=== PATIENT | female | born 1970 | race African-American/Black ===

== ENCOUNTER 2016-07-04 13:19 | Observation (INO) | payer MEDICAID, OTHER ==
--- NOTE | ~2016-07-04 | BMI ---
[facility] Nutrition Therapy DATE: 07/05/16 Patient: LEVIA SEPULVEDA Physician: ATTPRE Address: [address] [place] [address] Room/Bed: [address] [address], Zip: [place] [address] Admit Date: 07/04/16 Date of : [birth year] Height: 5 8 Weight: 294 133.4 HIGH BMI NOTE: DX: 44 yo female admitted for dizziness and hypotension ANTHROPOMETRICS: HT: 5'8", WT: 133 kg (293#), BMI: 44.6 DIET: Heart healthy INTERVENTION: 1. Heart healthy diet RECOMMENDATIONS: 1. Continue a heart healthy diet to promote gradual weight loss towards healthy BMI (19.0-25.0) RD will F/U per protocol. Respectfully, DESI BERNARD, Belt Molder Lavon Beaulieu MS, RD, LD [facility] and Nutritional [facility] cc: client file
--- NOTE | ~2016-07-04 | MU ---
Unit #: [id number] #: [id number] Patient: ELVIA SEPULVEDA [id number] [address] [address] [id number] I MR#: [id number] NAME: ELVIA SEPULVEDA : 1970 SEX: F STUDY DATE/TIME: 07/05/2016 UNIT: C5B ROOM: 548 STUDY DESCRIPTION: MUGA scan Attending Physician: Kelly Lopez M.D. Primary Care Physician: Saw Thomson M.D. CARDIOLOGY REPORT PROCEDURE PERFORMED MUGA scan. PROCEDURE Technetium 99m-labeled RBCs, 29.8 mCi, were injected. Images were obtained in left lateral, anteroposterior and left anterior oblique views. The left ventricular ejection fraction is calculated to be 57%. CONCLUSIONS The left ventricular ejection fraction is calculated to be 57% by MUGA scan. Dictated by... Jaylene Dejesus TD: 07/06/2016 08:01 JOB #: [id number] CARDIOLOGY REPORT X Kelly Lopez MD <ELECTRONICALLY SIGNED> 11/12/16 1429 CARDIOLOGY REPORT
--- NOTE | ~2016-07-04 | DS ---
Unit #: [id number] #: [id number] Patient: ELVIA SEPULVEDA [id number] [address] [place], [place] [address] [id number] I MR#: [id number] NAME: ELVIA SEPULVEDA ROOM: 548 Age: 46 Sex: F Admission Date: 07/04/2016 : 1970 Discharge Date: 07/05/2016 Attending Physician: Kelly Lopez M.D. Primary Care Physician: Saw Thomson M.D. DISCHARGE SUMMARY DISCHARGE DIAGNOSES 1. Dizziness, negative orthostatic vitals. 2. Mild to moderate pericardial effusion, no tamponade. 2D echo done 06/06/2016 shows moderate pericardial effusion. No evidence of cardiac tamponade. No worsening of pericardial effusion compared to echocardiogram done the previous month. 3. CT of the chest reveals small pericardial effusion. No evidence of pulmonary embolism. 4. History of pulmonary embolism in the past. 5. Hyperlipidemia. 6. Normal stress test recently. Details unavailable. 7. Hypertension. 8. Hypothyroidism. 9. Morbid obesity with a body mass index of 45. 10. Diabetes mellitus type 2. 11. Nonsmoker. 12. Occasional alcohol use. History of lap banding. 13. History of thyroidectomy. 14. History of blood clotting disorder. It is Factor V Leiden deficiency and history of pulmonary emboli. Is on daily subcu Lovenox, home medication. 15. Normal coronaries per cardiac cath in 2014. DISCHARGE MEDICATIONS 1. Lovenox 150 mg subcu b.i.d. 2. Gabapentin decreased down to 100 mg p.o. three times daily. 3. Bisacodyl 10 mg p.r.n. for constipation. 4. Colace 100 mg p.o. three times daily p.r.n. [id number] for constipation. 5. Furosemide 40 mg p.o. as needed for increased swelling and increased shortness of breath. 6. Tramadol 50 mg every 12 hours p.r.n. for pain. 7. K-Dur 40 mEq p.o. daily. 8. Change Synthroid to 250 mcg p.o. daily from 200 mcg daily. HOSPITAL COURSE This is a 46-year-old white female who is well known to Dr. Lopez. She was admitted directly from the office yesterday after the patient has been complaining of increased dizziness and fatigueness and near syncopal episode. She is also complaining of increased shortness of breath. Denies any chest pain, pain in her neck, bilateral jaws, shoulders, arms or elbow. Denied any palpitations. She was noticing some pedal edema. Denies any paroxysmal nocturnal dyspnea or orthopnea. Blood pressure in the office was low. It was documented to be 109/75. Dr. Lopez felt the Unit #: [id number] #: [id number] Patient: ELVIA SEPULVEDA patient maybe was having some hypertension from dehydration, possibly acute kidney injury. She wanted to stop her Lasix but she has a history of having a moderate pericardial effusion in the past and she repeated the echo in the office and continues to show pericardial effusion but no tamponade. She admitted the patient to undergo further studies. CT of the chest to evaluate pericardial effusion along with to make sure she didn't have a pulmonary embolism which the patient has had in the past. Was negative. It showed a small pericardial effusion. No evidence of pulmonary embolism. On labs, she did a TSH which it was 28.23 so she increased her dose of Synthroid. The patient, this morning, is feeling better. Also, Dr. Lopez advised to decrease down her dose of gabapentin. It may be making her fatigued and lethargic. Orthostatic vital signs were obtained and they were unremarkable. MUGA scan has been done and that revealed LVEF of 30% to 40%. Dr. Lopez feels like her pericardial effusion is most likely secondary to her hypothyroidism. She, as mentioned, will increase the dose of Synthroid and will get the levels checked in a few weeks. On date of discharge, patient's vital signs are stable. Her lungs are clear. On quality assurance monitor, she remains in normal sinus rhythm, no arrhythmias. Patient will be discharged home today and will be instructed to only take her Lasix as needed for increased swelling and shortness of breath and to decrease her Neurontin and change the dose of Synthroid. PHYSICAL EXAM AT TIME OF DISCHARGE VITAL SIGNS - blood pressure 132/72, heart rate 82, diminished breath sounds, respirations 18, afebrile. HEART - S1, S2. Regular rate and rhythm. No clicks, murmurs or rubs. LUNGS - diminished, otherwise clear. ABDOMEN - obese, soft, nontender. EXTREMITIES - pedal pulses are palpable. Decreased pedal edema. DIAGNOSTIC STUDIES LABORATORY: Glucose is 97, BUN 13, creatinine 1.2, eGFR above 60, sodium 138, potassium 4.2, chloride 109, CO2 25, calcium 8.8. TSH is 28.23. WBC 7.2, hemoglobin 12.2, hematocrit 37.9 and platelets 186. IMAGING: CT of the chest is small pericardial effusion. No evidence of pulmonary embolism. CARDIOVASCULAR: Telemetry shows normal sinus rhythm. PLAN/INSTRUCTIONS 1. Patient will be discharged today and instructed to follow up with Dr. Lopez in two to three months with a limited 2D echo to re-evaluate her LVEF with pericardial effusion. 2. Patient already has a followup appointment. 3. Cardiac rehab has been consulted to assist with patient getting increased exercise tolerance due to her multiple medical issues and obesity. 4. Patient has been instructed to only take her Lasix as needed for increased swelling and shortness of breath. Also, patient has been Unit #: [id number] #: [id number] Patient: ELVIA SEPULVEDA instructed to decrease her Neurontin to 100 mg p.o. three times daily. That may help on her fatigueness. 5. Her thyroid medication has been increased to Synthroid 250 mcg p.o. daily. The level will be checked as an outpatient and with her PCP in about six weeks. 6. On exam, there are no signs or symptoms of acute congestive heart failure or unstable angina. 7. Instructed patient to follow up with her PCP in two to three weeks. Dictated by... Megan LawrencePMikaelaRMikaelaNMikaela for Jaylene Dejesus/rowdy TD: 07/05/2016 12:22 JOB #: [id number] DISCHARGE SUMMARY X Erika Fitzpatrick APRN X DISCHARGE SUMMARY
--- NOTE | ~2016-07-04 | CT16 ---
[facility] A Service of [facility] RADIOLOGY TEXT RESULTS PATIENT: ELVIA SEPULVEDA LOCATION: [facility] : [birth year] UNIT #: [id number] AGE: [address]: Kelly Lopez MD SEX: F ORDER DR: [id number] [facility] [address]. [place], [place] [address] [id number] I MR#: [id number] Acc #: [id number] NAME: ELVIA SEPULVEDA : 1970 SEX: F STUDY DATE/TIME: 07/04/2016 19:27 UNIT: [facility] ROOM: [facility] STUDY DESCRIPTION: CT Angio Chest for PE Attending Physician: Kelly Lopez M.D. Ordering Physician: Kelly Lopez M.D. Primary Care Physician: Saw Thomson M.D. MEDICAL IMAGING REPORT This report is preliminary unless electronic signature is present EXAM CT chest PE protocol. HISTORY Shortness of air, pressure in chest times one and one-half weeks. History of liver, pancreatic disease. COMPARISON CT chest PE protocol 05/20/[address] exam was performed with one or more of the following radiation dose reduction techniques: automatic exposure control, adjustment of mA and/or kV according to patient size, and iterative reconstruction. FINDINGS Axial images of the chest following IV contrast. 3-D coronal and sagittal reconstructed images reviewed at a workstation. Pulmonary parenchyma is normal. No effusions. Normal enhancement of the pulmonary arteries. Aorta unremarkable. Small pericardial effusion. Upper abdomen remarkable for lap-band procedure. Osseous structures thoracic inlet appear normal. IMPRESSION 1. Small pericardial effusion. No evidence of pulmonary embolus. 2. Not mentioned above there is some fluid within the esophagus could be indicative of underlying reflux disease. Patient has undergone apparent lap-band procedure and possibly this may contribute to dysmotility which could also account for fluid within the esophagus. Dictated by... [facility] A Service of [facility] RADIOLOGY TEXT RESULTS PATIENT: ELVIA SEPULVEDA LOCATION: [facility] 54 : [birth year] UNIT #: [id number] AGE: [address]: Kelly Lopez MD SEX: F ORDER DR: Desiree Howe M.D. THIS IS AN ELECTRONICALLY VERIFIED REPORT Desiree Howe M.D. at 07/05/2016 6:33 PM Rina TD: 07/05/2016 09:30 JOB #: [id number] MEDICAL IMAGING REPORT COPY
[~2016-07-04 13:19] MED LIST: ARIXTRA10 MG/0.8 SUBQ; COUMADIN PO; COUMADIN1 MG PO; COUMADIN5 MG PO; FLEXERIL10 MG PO; HYDROCHLOROTHIA25 MG PO; INDERAL40 MG; IRON1 TAB PO; IRON325 ( 651 PO; KEFLEX PO; LEVOXYL200 MC1 PO; LISINOPRIL PO; LISINOPRIL5 MG PO; LOSARTAN POTASS50 MG PO; LOVENOX100 MG/ML SUBQ; MEDROL DOSEPAK4 MG DOB; METOPROLOL SUCC50 MG; METOPROLOL SUCC50 MG PO; MULTIPLE VITAMI1 T11 PO; NEURONTIN PO; PERCOCET 10/3251 TAB PO; PHENERGAN25 MG PO; PRAVACHOL; PRAVACHOL PO; ROBITUSSIN-DM118 M1 PO; SYNTHROID PO; SYNTHROID0.1 MG PO; TOBRADEX EYE DRO5 ML OP; TOPROL XL PO; TYLOX 5-500 CA1 EACH PO; VICODIN 5/1 TAB 5/50 PO; VICODIN PO; WARFARIN SODIUM10 MG PO; ZOFRAN PO
[2016-07-04 15:08] LABS: HEMATOCRIT 37.9 % (35.0-45.0); HEMOGLOBIN 12.2 gm/dL (12.0-16.0); MEAN CELL VOLUME 98.3 FL (83-96); MEAN CORPUSCULAR HEMOGLOBIN 31.6 PG (28-34); MEAN CORPUSCULAR HGB CONC 32.1 g/dL (30-36); MEAN PLATELET VOLUME 8.9 FL (6.5-11.5); RED BLOOD COUNT 3.85 X10e (3.90-5.30); RED CELL DISTRIBUTION WIDTH 15.7 % (11.0-15.5); WHITE BLOOD COUNT 7.2 X10e3 (4.0-10.5)
[2016-07-04] MEDS ORDERED: LOVENOX150 MG/ML SUBQ (15:19)
[2016-07-04] MEDS ORDERED: LASIX PO (15:19)
[2016-07-04] MEDS ORDERED: GABAPENTIN600 MG PO (15:20)
[2016-07-04] MEDS ORDERED: K-DUR20 ME1 PO (15:21)
[2016-07-04] MEDS ORDERED: LEVO-T200 MCG PO (15:22)
[2016-07-04] MEDS ORDERED: TRAMADOL HCL50 M2 PO (15:23)
[2016-07-04 15:30] LABS: BLOOD UREA NITROGEN 13 mg/dL (9-23); BUN/CREATININE RATIO 10.83; CALCIUM SERUM 8.8 mg/dL (8.4-10.2); CARBON DIOXIDE 25 mmol/L (22-31); CHLORIDE 109 mmol/L (100-111); CREATININE SERUM 1.2 mg/dL (0.6-1.4); GLOM FILT RATE Estimated ABOVE60 mL/min (>60); GLUCOSE FASTING 97 mg/dL (70-110); POTASSIUM 4.2 mmol/L (3.5-5.1); SODIUM 138 mmol/L (135-145)
[2016-07-05] MEDS ORDERED: FAST RELIEF LAX10 MG PR (15:02)
[2016-07-05] MEDS ORDERED: DOCUSATE SODIU100 MG PO (15:06)
== END 2016-07-05 16:26 | disposition home or self-care (01) ==
LOC: C5B 13:19
PROVIDERS: Internal Medicine Cardiovascular Disease
DX: R42 Dizziness and giddiness (principal); I31.3 Pericardial effusion (noninflammatory); Z79.01 Long term (current) use of anticoagulants; Z86.711 Personal history of pulmonary embolism; I10 Essential (primary) hypertension; E78.5 Hyperlipidemia, unspecified; E03.9 Hypothyroidism, unspecified; I42.9 Cardiomyopathy, unspecified; E66.01 Morbid (severe) obesity due to excess calories; Z68.42 Body mass index [BMI] 45.0-49.9, adult; E11.9 Type 2 diabetes mellitus without complications; Z79.84 Long term (current) use of oral hypoglycemic drugs; Z79.899 Other long term (current) drug therapy; Z98.84 Bariatric surgery status; Z86.2 Personal history of diseases of the blood and blood-forming organs and certain disorders involving the immune mechanism; Z88.8 Allergy status to other drugs, medicaments and biological substances; Z98.51 Tubal ligation status; Z82.49 Family history of ischemic heart disease and other diseases of the circulatory system; Z83.3 Family history of diabetes mellitus
CPT/HCPCS: 71275; 78472; 80048; 84443; 85027; 96372; 96375; 96376; A9560; G0378; J1650; Q9967

== ENCOUNTER 2016-07-26 10:40 | Emergency (ER) | payer MEDICAID ==
[~2016-07-26 10:40] MED LIST changes: +DOCUSATE SODIU100 MG PO; +FAST RELIEF LAX10 MG PR; +GABAPENTIN600 MG PO; +K-DUR20 ME1 PO; +LASIX PO; +LEVO-T200 MCG PO; +LOVENOX150 MG/ML SUBQ; +TRAMADOL HCL50 M2 PO
== END 2016-07-26 11:28 | disposition home or self-care (01) ==
LOC: CFTX 10:40
DX: H10.31 Unspecified acute conjunctivitis, right eye (principal); Z23 Encounter for immunization; E11.9 Type 2 diabetes mellitus without complications; I10 Essential (primary) hypertension; Z88.8 Allergy status to other drugs, medicaments and biological substances
CPT/HCPCS: 90471; 90715; 99283

== ENCOUNTER 2016-12-16 20:03 | Inpatient (IN) | payer MEDICAID ==
[~2016-12-16] VITALS: Ht 172.7 cm; Wt 124.3 kg
--- NOTE | ~2016-12-16 | HP ---
Unit #: [id number] #: [id number] Patient: ELVIA SEPULVEDA [id number] [address] [place], [place] [address] [id number] I MR#: [id number] NAME: ELVIA SEPULVEDA ROOM: 561 Age: 46 Sex: F Admission Date: 12/17/2016 : 1970 Attending Physician: Yamileth Cormier M.D. Primary Care Physician: Saw Thomson M.D. HISTORY AND PHYSICAL REASON FOR ADMISSION Dyspnea, moderate, probability pulmonary embolism seen on VQ scan. HISTORY OF PRESENT ILLNESS The patient is a very pleasant 46-year-old female with a prior history of numerous pulmonary emboli in the past since 2009, followed by Dr. Crum as an outpatient. Prior history of factor V Leiden deficiency. She presented secondary to shortness of breath, as well as difficulty with breathing. Apparently she was in her usual state of health several days ago when she began developing acute onset of difficulty with breathing and/or shortness of breath. She presented to the hospital for further evaluation. Initial evaluation, however, revealed her creatinine was mildly increased and GFR was decreased. Therefore, CTA was not performed but VQ scan was performed showing moderate probability of pulmonary embolus. The patient states that she has not been able to get her Lovenox injections at home for approximately 4 months secondary to lack of insurance and/or logistical issues. She routinely sees Dr. Crum and associates as an outpatient. She states that she has, otherwise, been in her usual state of health up until several months ago when she lost her insurance. Currently she tells me that her insurance now will pay for Lovenox. She is, otherwise, breathing on room air. She denies any chest pain at the present time. PAST MEDICAL HISTORY 1. Recent khkr-bt-wbtcqbna pericardial effusion, no tamponade/hospital admission May 2016. 2. Prior history of recurrent pulmonary embolism with numerous ultrasounds of lower extremities showing no acute DVTs in the past. 3. Hyperlipidemia. 4. Hypertension. 5. Morbid obesity. 6. Hypothyroidism. 7. Status post Lap-Band surgery. 8. Diabetes type 2. 9. Thyroidectomy history. 10. Factor V Leiden deficiency. 11. Cardiac catheterization in 2014 negative. 12. Type 2 diabetes. Unit #: [id number] #: [id number] Patient: ELVIA SEPULVEDA PAST SURGICAL HISTORY 1. . 2. Tubal ligation. 3. Thyroidectomy, as mentioned above. HOME MEDICATIONS 1. Tramadol 50 mg p.o. b.i.d. 2. Neurontin 100 mg p.o. q.8 p.r.n. 3. Lovenox 150 mg subcu b.i.d. FAMILY HISTORY Reviewed. Negative for blood clotting disorder. Otherwise, unremarkable. ALLERGIES No known drug allergies. SOCIAL HISTORY Resides at home by herself. Occasional alcohol use weekends. No tobacco. No recreational drug use. PHYSICAL EXAMINATION VITAL SIGNS: Temperature 98.1, pulse 75, respiratory rate 18, blood pressure 114/86. GENERAL APPEARANCE: The patient is a morbidly obese 46-year-old female lying comfortably. No acute distress. HEAD EXAM: Atraumatic, normocephalic. EAR EXAM: Tympanic membranes do not reveal any erythema or injection. NECK EXAM: Supple. CVS: S1, S2 without murmur. RESPIRATORY: Clear. GI/ABDOMEN: Nontender. Distention noted. LOWER EXTREMITIES: No evidence of any lower extremity edema. NEUROLOGIC: The patient is alert and oriented x3. No evidence of any focal nerve deficits. DIAGNOSTIC STUDIES LABS: Labs at time of admission include a hemoglobin of 11, aforementioned creatinine of 1.4, GFR approximately 56, BNP less than 5, lactic acid 2.1, troponin/cardiac enzymes first set negative. UA - Trace protein, leukocyte esterase 1+. INITIAL IMPRESSION 1. Dyspnea likely secondary to underlying pulmonary embolism as seen by moderate probability on VQ scan. Also likely secondary to multifactorial combination of severe morbid obesity, restrictive lung disease, as well. 2. History of hypertension. 3. Hyperlipidemia. 4. Morbid obesity. 5. Anemia. 6. Chronic neuropathy. 7. Prior history of type 2 diabetes. 8. Prior history of Lap-Band surgery. PLAN Admission telemetry floor. Consultation will be placed to Dr. Crum and associates, as they have seen the patient in the past, because she has not Unit #: [id number] #: [id number] Patient: ELVIA SEPULVEDA taken her Lovenox for approximately 4 months. Consideration will be given to resuming her Lovenox and planning for discharge to home. I have instructed the patient to follow up with Dr. Crum as an outpatient, as well as her primary care physician. I see records of hypothyroidism, type 2 diabetes, hypertension, hyperlipidemia; however, she is not taking any medications for the above. All this can effectively be worked up as an outpatient, as well. Plans have been reviewed with the patient. Will await input from hematology services. Once they see and evaluate the patient, the patient may be deemed appropriate for discharge home. Dictated by Jaylene Kendrick/wilner TD: 12/20/2016 07:44 JOB #: [id number] HISTORY AND PHYSICAL Page 1 of 1 X Yamileth Cormier MD HISTORY AND PHYSICAL
--- NOTE | ~2016-12-16 | EKG ---
PATIENT: ELVIA SEPULVEDA UNIT #: [id number] Ventricular Rate: 83 BPM Atrial Rate: 83 BPM P-R Interval: 132 ms QRS Duration: 82 ms Q-T Interval: 418 ms QTC Calculation(Bezet): 491 ms P Ballico: 43 degrees Calculated R Ballico: -11 degrees Calculated T Ballico: 55 degrees Diagnosis Line: Normal sinus rhythm Diagnosis Line: Low voltage QRS Diagnosis Line: Borderline ECG Diagnosis Line: When compared with ECG of 19-MAY-2016 19:51, Diagnosis Line: Questionable change in QRS axis Diagnosis Line: Confirmed by RHONDA MARIE MD ([id number]) on Diagnosis Line: 12/19/2016 4:42:16 PM INTERPRETING MD: HENNY
--- NOTE | ~2016-12-16 | US84 ---
[id number] [facility] [address] [place], [place] [address] [id number] I MR#: [id number] [facility] #: [id number] NAME: ELVIA SEPULVEDA : 1970 SEX: F STUDY DATE/TIME: 12/17/2016 20:54 UNIT: C5B ROOM: [facility] STUDY DESCRIPTION: US LE Veins Complete David Stdy Attending Physician: Yamileth Cormier M.D. Ordering Physician: Yamileth Cormier M.D. Primary Care Physician: Saw Thomson M.D. MEDICAL IMAGING REPORT This report is preliminary unless electronic signature is present EXAM Bilateral lower extremity venous Doppler REASON FOR EXAM Lower extremity swelling. FINDINGS The right common femoral vein, femoral vein, popliteal vein, anterior tibial vein and posterior tibial vein are widely patent and compressible. There is phasic flow with respiration and augmentation. The right peroneal vein does not have color flow and is noncompressible consistent with thrombosis. The proximal and distal greater saphenous vein is patent and compressible. The left common femoral vein, popliteal vein, tibial veins demonstrate patency and compressibility. There is phasic and spontaneous flow with respiration and augmentation. Proximal and distal greater saphenous vein is patent and compressible. Within the left popliteal fossa is a simple fluid collection 2.5 cm consistent with a cyst. IMPRESSION 1. Positive deep vein thrombosis of the right lower extremity in the peroneal vein. 2. No deep venous thrombosis of the left lower extremity. 3. A 2.5 cm fluid collection consistent with cyst in the left popliteal fossa. Dictated by... Fab Borges M.D. THIS IS AN ELECTRONICALLY VERIFIED REPORT Fab Borges M.D. at 12/19/2016 7:32 AM TARSHA/gary TD: 12/19/2016 05:09 JOB #: [id number] MEDICAL IMAGING REPORT Page 1 of 1 COPY
--- NOTE | ~2016-12-16 | DS ---
Unit #: [id number] #: [id number] Patient: ELVIA SEPULVEDA [id number] [address] [place], [place] [address] [id number] I MR#: [id number] NAME: ELVIA SEPULVEDA ROOM: 561 Age: 46 Sex: F Admission Date: 12/17/2016 : 1970 Discharge Date: 12/20/2016 Attending Physician: Yamileth Cormier M.D. Primary Care Physician: Saw Thomson M.D. DISCHARGE SUMMARY HOSPITAL COURSE Please see H and P for details of initial part of hospital stay. Patient was essentially admitted initially secondary to dyspnea, chest discomfort. She had a longstanding history of recurrent pulmonary embolism without any prior history of any occult DVT. She is normally followed by Dr. Whitaker as an outpatient. She stated she felt as though she was having another PE and therefore presented to the ER for further evaluation. It should be noted that as an outpatient, it was recommended that she be maintained on Lovenox injections on a subcu. b.i.d. basis; however, secondary to insurance reasons, she had not received her medications for approximately four months. It got approved, actually, the day before she was admitted to our hospital. She was admitted and subsequently placed on telemetry floor. She underwent a VQ scan, which showed intermediate probability of pulmonary embolism. Unfortunately, a CTA was not able to be performed secondary to elevated creatinine. She was placed on telemetry floor and received IV fluids. Her creatinine became normal. Subsequently, CT angiogram of chest, PE protocol, was ordered, which was negative for acute pulmonary embolism. Ultrasound of lower extremities was also performed to rule out the possibility of DVT. She does have a positive DVT in the right lower extremity in the peroneal vein. We placed consultation to Dr. Whitaker who stated that she should be discharged on appropriate Lovenox at 1 mg/kg subcu. b.i.d. During the time of discharge, unfortunately, she began developing acute nausea, increased chest discomfort, as well as acute emesis episodes. Secondary to a prior history of LAP-band surgery, we placed consultation to Dr. Cee for evaluation. Per evaluation, it was noted the patient had a flipped LAP-band port. She underwent LAP-band adjustment as well as LAP-band port revision. This procedure was carried out on December 20, 2016. Postoperatively, she has otherwise done well and tolerated a diet without difficulty. She will be discharged home in stable condition with instructions to follow up as an outpatient with Dr. Roberts and associates for ongoing care. FINAL DISCHARGE DIAGNOSES 1. Dyspnea, likely multifactorial secondary to morbid obesity, chronic deconditioning. Unit #: [id number] #: [id number] Patient: ELVIA SEPULVEDA 2. Chronic anticoagulation secondary to recurrent pulmonary embolism and now new right lower extremity deep venous thrombosis. 3. Right lower extremity deep venous thrombosis, new per patient. 4. Hyperlipidemia. 5. Hypertension. 6. Obesity. 7. Hypothyroidism. 8. Status post LAP-band surgery with revision this hospital admission. 9. Type 2 diabetes, diet controlled. 10. Prior history of thyroidectomy. 11. Factor V Leiden deficiency. DISCHARGE MEDICATIONS 1. Lovenox 150 mg subcu. b.i.d. 2. Neurontin 100 mg p.o. q.8. 3. Ultram 50 mg p.o. b.i.d. DISCHARGE CONDITION Stable. DISCHARGE DISPOSITION Home. Dictated by... Jaylene Kendrick/mo TD: 12/21/2016 12:06 JOB #: [id number] DISCHARGE SUMMARY Page 1 of 1 X Yamileth Cormier MD X DISCHARGE SUMMARY
--- NOTE | ~2016-12-16 | CR72 ---
[facility] A Service of [facility] RADIOLOGY TEXT RESULTS PATIENT: ELVIA SEPULVEDA LOCATION: [facility] 561-01 : [birth year] UNIT #: [id number] AGE: [address]: Yaimleth Cormier MD SEX: F ORDER DR: [id number] [facility] [address] [place], [place] [address] [id number] I MR#: [id number] Acc #: [id number] NAME: ELVIA SEPULVEDA : 1970 SEX: F STUDY DATE/TIME: 12/16/2016 21:47 UNIT: [facility] ROOM: [facility] STUDY DESCRIPTION: CR Chest Single View Portable Attending Physician: Yamileth Cormier M.D. Ordering Physician: Ed Doctor [id number] [facility] Primary Care Physician: Saw Thomson M.D. MEDICAL IMAGING REPORT This report is preliminary unless electronic signature is present EXAM Portable chest HISTORY Chest pain, shortness and breath and weakness for the past 2 days. TECHNIQUE Single AP view of the chest was obtained and compared with 05/19/2016. FINDINGS A single AP portable view of the chest shows both lungs to be clear. The heart is normal in size. The mediastinal contour is normal. No significant bone abnormalities are seen. IMPRESSION Normal portable chest. Dictated by... Fox Ty M.D. THIS IS AN ELECTRONICALLY VERIFIED REPORT Fox Ty M.D. at 12/19/2016 7:14 AM ALAINA/ari TD: 12/18/2016 00:57 JOB #: [id number] MEDICAL IMAGING REPORT Page 1 of 1 COPY
--- NOTE | ~2016-12-16 | CT16 ---
[facility] A Service of [facility] RADIOLOGY TEXT RESULTS PATIENT: ELVIA SEPULVEDA LOCATION: [facility] 561 : 70 UNIT #: [id number] AGE: [address]: Yamileth Cormier MD SEX: F ORDER DR: [id number] [facility] [address] [facility]. [place], [place] [address] [id number] I MR#: [id number] Acc #: [id number] NAME: ELVIA SEPULVEDA : 1970 SEX: F STUDY DATE/TIME: 12/17/2016 16:55 UNIT: [facility] ROOM: [facility] STUDY DESCRIPTION: CT Angio Chest for PE Attending Physician: Yamileth Cormier M.D. Ordering Physician: Yamileth Cormier M.D. Primary Care Physician: Saw Thomson M.D. MEDICAL IMAGING REPORT This report is preliminary unless electronic signature is present EXAM CTA chest with contrast, 12/17/2016. HISTORY 46-year-old female with shortness of air for 2 days. COMPARISON CTA chest, 07/04/2016. TECHNIQUE Helical scan performed through the chest following the timed bolus administration of IV contrast per PE protocol. Coronal 3-D MIP reconstructions. Sagittal reformatted images. This CT exam was performed with one or more of the following radiation dose reduction techniques: automatic exposure control, adjustment of mA and/or kV according to patient size, and iterative reconstruction. FINDINGS There is adequate opacification of the pulmonary arteries with no filling defects noted. Thoracic aorta normal in course and caliber without dissection. Heart size is normal. Small pericardial effusion is again noted. The esophagus is fluid-filled. No pleural effusions. No pneumothorax. No parenchymal infiltrates. Scanning through the upper abdomen demonstrates a gastric Lap-Band. No acute bony abnormality. IMPRESSION 1. Negative for pulmonary emboli. 2. Negative for thoracic aortic aneurysm/dissection. 3. Small pericardial effusion. [facility] A Service [facility] RADIOLOGY TEXT RESULTS PATIENT: ELVIA SEPULVEDA LOCATION: [facility] : 70 UNIT #: [id number] AGE: [address]: Yamileth Cormier MD SEX: F ORDER DR: 4. Fluid-filled esophagus. 5. No acute pulmonary process. 6. Gastric Lap-Band. Dictated by... Nabor Arellano M.D. THIS IS AN ELECTRONICALLY VERIFIED REPORT Nabor Arellano M.D. at 12/19/2016 10:50 AM DALI/angelo TD: 12/18/2016 17:29 JOB #: [id number] MEDICAL IMAGING REPORT Page 1 of 1 COPY
--- NOTE | ~2016-12-16 | BMI ---
[facility] Nutrition Therapy DATE: 12/19/16 Patient: ELVIA SEPULVEDA Physician: MALAIKA Address: [address] [place] [address] Room/Bed: [address] [place] [address], Zip: [place] [address] Admit Date: 12/17/16 Date of : [birth year] Height: 5 8 Weight: 275 125 HIGH BMI NOTE: DX: PE ANTHROPOMETRICS: HT: 68", WT: 275#, BMI: 41.8 DIET: NPO RECOMMENDATIONS: ONCE DIET ADVANCEMENT IS MEDICALLY FEASIBLE PLEASE ADD HEART HEALTHY TO DIET ORDER TO PROMOTE A STEADY WEIGHT LOSS TOWARDS A HEALTHY BMI OF 19-25 Respectfully, JAVIER SAEED, SKIP, LD [employer] [facility] cc: client file
--- NOTE | ~2016-12-16 | OR ---
Unit #: [id number] #: [id number] Patient: ELVIA SEPULVEDA [id number] [address] [place], [place] [address] [id number] Rickey MR#: [id number] NAME: ELVIA SEPULVEDA ROOM: [facility] Date of Procedure: 12/20/2016 Admission Date: 12/17/2016 Surgeon: Gregory Carlton III, M.D. : 1970 Attending Physician: Yamileth Cormier M.D. Primary Care Physician: Saw Thomson M.D. OPERATIVE REPORT PREOPERATIVE DIAGNOSES Dysphagia and flipped lap-band port. POSTOPERATIVE DIAGNOSES Dysphagia and flipped lap-band port. PROCEDURES PERFORMED Open lap-band port revision and lap-band port adjustment. ANESTHESIA General. SPECIMENS None. COMPLICATIONS None apparent. ESTIMATED BLOOD LOSS Minimal. INDICATIONS FOR PROCEDURE This is a 46-year-old lady, who has had a lap-band for approximately two years. She presented with dysphagia. We attempted to access her port and even under fluoroscopy, the port appeared to be tilted and was not accessible. For that reason, she was taken for revision of her lap-band port as well as adjustment. DESCRIPTION OF PROCEDURE After consent was obtained, the patient was brought to the operating room and placed in the supine position. General anesthetic was administered and her abdomen was prepped and draped in standard surgical fashion. I made 1.5 inch incision where her prior incision was overlying her port. I dissected down and identified the port. It was tilted on its side. I was able to remove it from the surrounding scar tissue. I then accessed the port with a noncoring Gunn needle and removed approximately 3.5 mL of fluid. I then identified some fascia just inferior to that. I placed two lateral 0 Ethibond stay sutures. I then brought these up through the eyelets of the port and secured them down to the level of the fascia. I then tacked the excess tubing back into the abdominal cavity. Hemostasis was excellent. I irrigated the wound. I then reapproximated the skin edges with a running 4-0 Vicryl subcuticular suture. Steri-Strips were Unit #: [id number] #: [id number] Patient: ELVIA SEPULVEDA then applied. The patient tolerated the procedure without any problems and returned to the recovery room in stable condition. Dictated by... Gregory Carlton III, M.D. VCL/kassandra TD: 12/21/2016 16:18 JOB #: [id number] OPERATIVE REPORT Page 1 of 1 X Gregory Carlton III, MD X PROCEDURE OPERATIVE NOTE
--- NOTE | ~2016-12-16 | CR289 ---
[facility] A Service of [facility] RADIOLOGY TEXT RESULTS PATIENT: ELVIA SEPULVEDA LOCATION: [facility] 561-01 : 70 UNIT #: [id number] AGE: [address]: Yamileth Cormier MD SEX: F ORDER DR: [id number] [place] [address] [facility]. [place], [place] [address] [id number] I MR#: [id number] Acc #: [id number] NAME: ELVIA SEPULVEDA : 1970 SEX: F STUDY DATE/TIME: 12/19/2016 13:07 UNIT: [facility] ROOM: [facility] STUDY DESCRIPTION: CR UGI W Katya VELASQUEZ Attending Physician: Yamileth Cormier M.D. Ordering Physician: Yamileth Cormier M.D. Primary Care Physician: Saw Thomson M.D. MEDICAL IMAGING REPORT This report is preliminary unless electronic signature is present EXAM Esophagram HISTORY About 2 years status post lap band with recent onset nausea and vomiting. TECHNIQUE 1.8 minutes of fluoroscopy. 14 spot images. FINDINGS Lap band is now positioned just below the gastric fundus. Limited contrast flowed through the lap band and some dilatation with persistent contrast retention in the distal esophagus. IMPRESSION Lap band is now below the upper most gastric fundus and positioned around the proximal stomach. The lower esophagus is dilated. There is a standing column of contrast in the esophagus for much of the exam. No gross evidence of ulceration or mucosal fold thickening, though the exam is quite limited due to the patient's inability to swallow, all but a small amount of contrast. Dictated by... Christiano Armstrong M.D. THIS IS AN ELECTRONICALLY VERIFIED REPORT Christiano Armstrong M.D. at 12/23/2016 4:09 PM TEV/pcl TD: 12/19/2016 21:40 JOB #: [id number] [facility] A Service of [facility] RADIOLOGY TEXT RESULTS PATIENT: ELVIA SEPULVEDA LOCATION: B 561-01 : 70 UNIT #: [id number] AGE: [address]: Yamileth Cormier MD SEX: F ORDER DR: MEDICAL IMAGING REPORT Page 1 of 1 COPY
--- NOTE | ~2016-12-16 | NM69 ---
[facility] A Service of [facility] & [facility] RADIOLOGY TEXT RESULTS PATIENT: ELVIA SEPULVEDA LOCATION: [facility] 561- : 70 UNIT #: [id number] AGE: [address]: Yamileth Cormier MD SEX: F ORDER DR: [id number] [facility] [address] [place], [place] [address] [id number] I MR#: [id number] Acc #: [id number] NAME: ELVIA SEPULVEDA : 1970 SEX: F STUDY DATE/TIME: 12/17/2016 0:49 UNIT: [facility] ROOM: [facility] STUDY DESCRIPTION: NM Pulm Vent and Perf Attending Physician: Yamileth Cormier M.D. Ordering Physician: Jamilah Molina M.D. Primary Care Physician: Saw Thomson M.D. MEDICAL IMAGING REPORT This report is preliminary unless electronic signature is present EXAM VQ lung scan HISTORY Shortness of air today. Hypotension. FINDINGS Ventilation scan was performed with 35.4 mCi technetium DTPA. Perfusion scan was performed with 5.6 mCi technetium MAA. There is a small to moderate sized perfusion defect in the superior segment right lower lobe, without corresponding ventilation defect. No additional ventilation or perfusion defect. IMPRESSION Intermediate probability of pulmonary embolus. Small to moderate sized perfusion defect in the superior segment right lower lobe with normal corresponding ventilation. Dictated by... Dami Frank M.D. THIS IS AN ELECTRONICALLY VERIFIED REPORT Dami Frank M.D. at 12/18/2016 6:30 AM DFL/ari TD: 12/18/2016 04:05 JOB #: [id number] MEDICAL IMAGING REPORT Page 1 of 1 COPY
--- NOTE | ~2016-12-16 | CO ---
Unit #: [id number] #: [id number] Patient: ELVIA SEPULVEDA [id number] [address] [place], [place] [address] [id number] I MR#: [id number] NAME: ELVIA SEPULVEDA ROOM: 561 Age: 46 Sex: F Admission Date: 12/17/2016 : 1970 Attending Physician: Yamileth Cormier M.D. Primary Care Physician: Saw Thomson M.D. Consultation Date: 12/18/2016 CONSULTATION REPORT PRIMARY REASON FOR CONSULTATION Nausea, vomiting, status post lap-band placement. HISTORY OF PRESENT ILLNESS The patient is a 46-year-old woman, who presented to the hospital with shortness of breath and dizziness for about a week. She was admitted to rule out PE. She states that over the last two days, however, she has had difficulty tolerating solids and liquids that she regurgitates what she eats up. She is status post lap-band placement two years ago. Her last adjustment was approximately one year ago. She has been doing fine up until just two days ago. PAST MEDICAL HISTORY As above. She has a history of a small pericardial effusion, ejection fraction of 35% with congestive heart failure, type 2 diabetes, hypertension, Factor V deficiency, hyperlipidemia, hypothyroidism, uterine ablation, thyroidectomy, , bilateral tubal ligation, lap-band placement in the past, cardiac catheterizations as well. MEDICATIONS See her MAR, nurse's notes. ALLERGIES Lisinopril. SOCIAL HISTORY She denies alcohol or drug abuse. She is not a smoker. FAMILY HISTORY Noncontributory. PHYSICAL EXAMINATION GENERAL: She is alert, in no apparent distress. VITAL SIGNS: Temperature is 98.3, pulse 88, respirations are 16, blood pressure 90/63, she is 100% saturated on room air. HEENT: Pupils are equal and round. Extraocular motions are intact. NECK: Supple without adenopathy. HEART: Regular rate and rhythm. LUNGS: Clear to auscultation anteriorly. ABDOMEN: Soft, obese, benign. EXTREMITIES: Negative for clubbing or cyanosis. NEUROLOGIC: Negative focal sensory or motor deficits. SKIN: Warm and dry. Unit #: [id number] #: [id number] Patient: ELVIA SEPULVEDA DIAGNOSTIC STUDIES LABORATORY RESULTS: Significant for hemoglobin of 11, potassium 3.3 on admission. UA shows 2+ bacteria. IMAGING STUDIES: Chest x-ray shows no active disease. ASSESSMENT AND PLAN The patient with acute onset of inability to tolerate p.o., status post lap-band with her last adjustment in the remote past. We will order an esophagram to define her anatomy. Dictated by... Jaylene Thakur/kassandra TD: 12/19/2016 17:12 JOB #: [id number] CONSULTATION REPORT Page 1 of 1 X Vipin Lyles CONSULTATION REPORT
[2016-12-16 20:42] LABS: BASOPHIL# 0.1 X10e3 (0-0.3); BASOPHIL% 1.2 % (0-2.5); EOSINOPHIL# 0.3 X10e3 (0-0.7); HEMATOCRIT 33.3 % (35.0-45.0); LYMPHOCYTE% 45.6 % (17.0-45.0); MEAN CORPUSCULAR HEMOGLOBIN 32.1 PG (28-34); MEAN CORPUSCULAR HGB CONC 33.1 g/dL (30-36); MEAN PLATELET VOLUME 8.4 FL (6.5-11.5); MONOCYTE# 0.4 X10e3 (0-1.0); MONOCYTE% 5.4 % (3.0-12.0); NEUTROPHIL# 2.9 X10e3 (1.5-7.1); NEUTROPHIL% 43.8 % (40-75); PLATELET COUNT 200 X10e3 (140-420); RED BLOOD COUNT 3.44 X10e (3.90-5.30); RED CELL DISTRIBUTION WIDTH 15.4 % (11.0-15.5); WHITE BLOOD COUNT 6.6 X10e3 (4.0-10.5)
[2016-12-16 20:45] LABS: DIFF IND NO
[2016-12-16 21:05] LABS: ALBUMIN SERUM 4.1 g/dL (3.5-5.0); BILIRUBIN, DIRECT 0.2 mg/dL (0.0-0.2); BILIRUBIN,INDIRECT 0.8 mg/dL (0.0-0.9); BUN/CREATININE RATIO 6.42; CALCIUM SERUM 8.9 mg/dL (8.4-10.2); CREATININE SERUM 1.4 mg/dL (0.6-1.4); GLOM FILT RATE Estimated 52.1 mL/min (>60); POTASSIUM 3.3 mmol/L (3.5-5.1); PROTEIN TOTAL SERUM 6.9 g/dL (6.0-8.3)
[2016-12-16 21:14] LABS: POC - CKMB 3.4 ng/mL (0.0-7.9); POC - TROPONIN <0.05 ng/mL (<=0.05)
[2016-12-16 23:38] LABS: URINE SOURCE CLEAN CATCH
[2016-12-16 23:44] LABS: URINE APPEARANCE CLOUDY; URINE BLOOD NEG (NEG); URINE COLOR DK YELLOW; URINE GLUCOSE NEG (NEG); URINE KETONE TRACE (NEG); URINE LEUKOCYTE ESTERASE 1+ (NEG); URINE NITRATE NEG (NEG); URINE PH 5.5 (5-8); URINE PROTEIN TRACE (NEG); URINE SPECIFIC GRAVITY 1.025 (1.003-1.035)
[2016-12-16 23:47] LABS: CULTURE INDICATED? YES; URINE BACTERIA AUWI 2+ (NEGATIVE); URINE SQUAMOUS EPITHELIAL CELL MOD /[HPF]
[2016-12-17 00:01] LABS: URINE BILIRUBIN NEG (NEG)
[2016-12-17 00:19] LABS: POC - CKMB 2.5 ng/mL (0.0-7.9); POC - TROPONIN <0.05 ng/mL (<=0.05)
[2016-12-17 15:25] LABS: BUN/CREATININE RATIO 6.36; CALCIUM SERUM 8.6 mg/dL (8.4-10.2); CREATININE SERUM 1.1 mg/dL (0.6-1.4); GLOM FILT RATE Estimated 69.7 mL/min (>60)
[2016-12-17 15:27] LABS: POTASSIUM 2.7 mmol/L (3.5-5.1)
[2016-12-18 07:11] LABS: HEMATOCRIT 34.1 % (35.0-45.0); HEMOGLOBIN 11.4 gm/dL (12.0-16.0); MEAN CELL VOLUME 97.8 FL (83-96); MEAN CORPUSCULAR HEMOGLOBIN 32.7 PG (28-34); MEAN CORPUSCULAR HGB CONC 33.5 g/dL (30-36); MEAN PLATELET VOLUME 8.5 FL (6.5-11.5); RED BLOOD COUNT 3.49 X10e (3.90-5.30); RED CELL DISTRIBUTION WIDTH 15.9 % (11.0-15.5); WHITE BLOOD COUNT 5.5 X10e3 (4.0-10.5)
[2016-12-18 07:49] LABS: CALCIUM SERUM 7.9 mg/dL (8.4-10.2); GLOM FILT RATE Estimated 78.3 mL/min (>60)
[2016-12-18 07:53] LABS: POTASSIUM 2.8 mmol/L (3.5-5.1)
[2016-12-19 07:19] LABS: BASOPHIL# 0.1 X10e3 (0-0.3); BASOPHIL% 0.8 % (0-2.5); EOSINOPHIL# 0.3 X10e3 (0-0.7); EOSINOPHIL% 4.2 % (0.0-7.0); HEMATOCRIT 35.2 % (35.0-45.0); HEMOGLOBIN 11.8 gm/dL (12.0-16.0); LYMPHOCYTE# 3.2 X10e3 (1.0-3.5); LYMPHOCYTE% 44.4 % (17.0-45.0); MEAN CELL VOLUME 97.2 FL (83-96); MEAN CORPUSCULAR HEMOGLOBIN 32.6 PG (28-34); MEAN CORPUSCULAR HGB CONC 33.6 g/dL (30-36); MEAN PLATELET VOLUME 8.8 FL (6.5-11.5); MONOCYTE# 0.4 X10e3 (0-1.0); MONOCYTE% 5.3 % (3.0-12.0); NEUTROPHIL# 3.3 X10e3 (1.5-7.1); NEUTROPHIL% 45.3 % (40-75); PLATELET COUNT 183 X10e3 (140-420); RED BLOOD COUNT 3.62 X10e (3.90-5.30); RED CELL DISTRIBUTION WIDTH 15.8 % (11.0-15.5); WHITE BLOOD COUNT 7.2 X10e3 (4.0-10.5)
[2016-12-19 07:27] LABS: DIFF IND NO
[2016-12-19 07:55] LABS: BLOOD UREA NITROGEN <5 mg/dL (9-23); BUN/CREATININE RATIO 5.55; CALCIUM SERUM 7.9 mg/dL (8.4-10.2); CARBON DIOXIDE 21 mmol/L (22-31); CHLORIDE 109 mmol/L (100-111); CREATININE SERUM 0.9 mg/dL (0.6-1.4); GLOM FILT RATE Estimated 88.9 mL/min (>60); GLUCOSE FASTING 81 mg/dL (70-110); POTASSIUM 3.5 mmol/L (3.5-5.1); SODIUM 139 mmol/L (135-145)
[2016-12-20 06:40] LABS: MAGNESIUM 2.1 mg/dL (1.6-3.0)
== END 2016-12-20 20:42 | disposition home health service (06) | DRG 982 ==
LOC: CED 20:03 → CEDOF 12-17 04:00 → C5B 12-17 04:00 → CEDOF 12-17 04:02 → CED 12-17 04:02 → CEDOF 12-17 07:29 → C5B 12-17 07:51 → CEDOF 12-17 07:51 → C5B 12-20 20:42
PROVIDERS: Emergency Medicine; Family Medicine
PROC: B246YZZ Ultrasonography of Right and Left Heart using Other Contrast (ICD-10-PCS; principal; 2016-12-17)
PROC: 0DW60CZ Revision of Extraluminal Device in Stomach, Open Approach (ICD-10-PCS; 2016-12-20)
DX: I26.99 Other pulmonary embolism without acute cor pulmonale (principal); I82.4Z1 Acute embolism and thrombosis of unspecified deep veins of right distal lower extremity; D68.2 Hereditary deficiency of other clotting factors; Z68.41 Body mass index [BMI] 40.0-44.9, adult; K95.09 Other complications of gastric band procedure; E66.01 Morbid (severe) obesity due to excess calories; K21.9 Gastro-esophageal reflux disease without esophagitis; E03.9 Hypothyroidism, unspecified; E11.9 Type 2 diabetes mellitus without complications; I10 Essential (primary) hypertension; E78.5 Hyperlipidemia, unspecified; Z86.711 Personal history of pulmonary embolism; Z98.51 Tubal ligation status; Y83.9 Surgical procedure, unspecified as the cause of abnormal reaction of the patient, or of later complication, without mention of misadventure at the time of the procedure; E87.6 Hypokalemia
CPT/HCPCS: 36415; 71010; 71275; 74241; 76000; 78582; 80048; 80076; 81003; 82553; 82607; 82947; 83036; 83605; 83735; 83880; 84132; 84484; 84703; 85025; 85027; 85730; 87086; 93005; 93306; 93970; 94760; 99285; A9540; A9567; J0690; J1644; J1650; J2405; J3010; J3420; Q9967

== ENCOUNTER 2016-12-21 21:55 | Inpatient (IN) | payer MEDICAID ==
[~2016-12-21] VITALS: Ht 172.7 cm; Wt 124.3 kg
--- NOTE | ~2016-12-21 | CT2 ---
[facility] A Service of [facility] & [facility] RADIOLOGY TEXT RESULTS PATIENT: ELVIA SEPULVEDA LOCATION: [place] [address] : 70 UNIT #: [id number] AGE: [address]: Katherine Villagran MD SEX: F ORDER DR: [id number] [facility] [address] [place], [place] [address] [id number] I MR#: [id number] Acc #: [id number] NAME: ELVIA SEPULVEDA : 1970 SEX: F STUDY DATE/TIME: 12/22/2016 0:40 UNIT: [facility] ROOM: [id number] STUDY DESCRIPTION: CT Abd and Pelv W Cont Attending Physician: Katherine Villagran M.D. Ordering Physician: Jamilah Molina M.D. Primary Care Physician: Saw Thomson M.D. MEDICAL IMAGING REPORT This report is preliminary unless electronic signature is present EXAM CT abdomen and pelvis with IV contrast HISTORY Abdomen pain today. Bleeding at laparoscopic gastric band incision. This CT exam was performed with one or more of the following radiation dose reduction techniques: automatic exposure control, adjustment of mA and/or kV according to patient size, and iterative reconstruction. FINDINGS CT abdomen and pelvis was performed with IV contrast. CT ABDOMEN: There is a lobulated subcutaneous hematoma in the anterior midline mid to upper abdomen, measuring 9 cm x 7.6 cm x 11 cm in AP, transverse and craniocaudal dimensions, containing a fluid - fluid level, and there is moderate adjacent subcutaneous stranding over the anterior abdomen centered at the midline, and the hematoma surrounds the subcutaneous portion of the laparoscopic gastric band port and catheter. There is a pericardial effusion measuring 1.7 cm over the anterior cardiac margin. Diffuse fatty infiltration of the liver. No hepatic mass or biliary dilatation. Several small splenic cysts. The pancreas, kidneys, and adrenal glands are normal. Normal caliber abdominal aorta. No bowel dilatation. CT PELVIS: Small amount of free fluid in the pelvis. Peripherally calcified uterine fibroid measures 4.4 cm. Urinary bladder is unremarkable. No bowel dilatation. IMPRESSION 1. Moderately large lobulated subcutaneous hematoma over the anterior midline mid and upper abdomen measuring 11 cm in maximal dimension [facility] A Service of [facility] & [facility] RADIOLOGY TEXT RESULTS PATIENT: ELVIA SEPULVEDA LOCATION: [facility] 472-01 : [birth year] UNIT #: [id number] AGE: [address]: Katherine Villagran MD SEX: F ORDER DR: containing a fluid - fluid level. There is additional stranding in the subcutaneous fat over the right and left anterior abdomen surrounding the larger hematoma, likely additional blood. The hematoma surrounds the subcutaneous portion of the laparoscopic gastric band catheter and port. 2. No intraperitoneal fluid or stranding. 3. Pericardial effusion measures 1.7 cm in thickness and is similar to CT 12/17/2016. 4. Peripherally calcified uterine fibroid measures 4.4 cm. Small amount of free fluid in the pelvis. 5. Fatty infiltration of the liver. Dictated by... Dami Frank M.D. THIS IS AN ELECTRONICALLY VERIFIED REPORT Dami Frank M.D. at 12/22/2016 4:39 AM RICHARD/gary TD: 12/22/2016 03:44 JOB #: [id number] MEDICAL IMAGING REPORT Page 1 of 1 COPY
--- NOTE | ~2016-12-21 | BMI ---
[facility] Nutrition Therapy DATE: 12/23/16 Patient: ELVIA SEPULVEDA Physician: DEBBI Address: [address] [place] [address] Room/Bed: [address] [place] [address], Zip: [place] [address] Admit Date: 12/22/16 Date of : [birth year] Height: 5 8 Weight: 274 124.3 HIGH BMI NOTE: ANTHROPOMETRICS: HT: 68" WT: 124.3 KG BMI: 41.7 DIET: NPO RECOMMENDATIONS: 1. ONCE MEDICALLY FEASIBLE, ADVANCE TO A HEART HEALTHY DIET TO PROMOTE GRAUDAL WEIGHT LOSS TOWARDS A HEALTHY BMI RANGE. Respectfully, FANNY BRENNAN RD, LD Food and Nutrition[facility] Services [facility] cc: client file
--- NOTE | ~2016-12-21 | DS ---
Unit #: [id number] #: [id number] Patient: ELVIA SEPULVEDA [id number] [address] [place], [place] [address] [id number] I MR#: [id number] NAME: ELVIA SEPULVEDA ROOM: 47 Age: 46 Sex: F Admission Date: 12/22/2016 : 1970 Discharge Date: 12/24/2016 Attending Physician: Yamileth Cormier M.D. Primary Care Physician: Saw Thomson M.D. DISCHARGE SUMMARY REASON FOR ADMISSION Hypotension, large subcutaneous hematoma of abdominal wall. HISTORY OF PRESENT ILLNESS/HOSPITAL COURSE Please refer to H and P for complete details of initial part of hospital stay. Patient was subsequently admitted. Consultations were placed to both hem/onc services, as well as LSA. Dr. Carlton saw and evaluated patient. Patient, on day 2 of hospital stay, underwent perioperative management of abdominal wall hematoma. Postoperatively she otherwise did well. From a [facility] standpoint patient was stable and cleared for discharge. She did undergo serial H and H's, which did reveal her hemoglobin to be slightly decreased at one point at 7.8. She was appropriately typed and crossed and transfused 1 unit of packed red blood cells. This morning her hemoglobin currently stands at 8.3. In coordination with Dr. Roberts, patient was placed on no anticoagulation while she was here in the hospital. Today at time of discharge, I will defer the decision of long-term anticoagulation to his team for ongoing care. Patient is clinically stable to discharge at this point in time from the hospital standpoint. FINAL DISCHARGE DIAGNOSES 1. Recent Lap-Band port revision with associated abdominal wall hematoma status post evacuation in operating room, now stable. 2. Hypotension on admission, now resolved. 3. Anemia. Baseline hemoglobin between 8 and 9. 4. 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 5. Recent hospital admission secondary to acute right lower extremity DVT. 6. Osteoarthritis. 7. Prior history of hyperlipidemia. 8. Prior history of hypertension. 9. Morbid obesity. 10. History of nonischemic cardiomyopathy. 11. Diet-controlled diabetes type 2. FINAL DISCHARGE MEDICATIONS 1. Neurontin 100 mg p.o. q.8. 2. Lortab 7.5/325 one tab p.o. q.6 p.r.n. Unit #: [id number] #: [id number] Patient: ELVIA SEPULVEDA 3. Ultram 50 mg p.o. b.i.d. p.r.n. 4. Lovenox dosage, duration and start date will be at the discretion of Dr. Roberts. Dictated by... Jaylene Kendrick/wilner TD: 12/26/2016 16:43 JOB #: [id number] DISCHARGE SUMMARY Page 1 of 1 X Yamileth Cormier MD X DISCHARGE SUMMARY
--- NOTE | ~2016-12-21 | EKG ---
PATIENT: ELVIA SEPULVEDA UNIT #: [id number] Ventricular Rate: 88 BPM Atrial Rate: 88 BPM P-R Interval: 154 ms QRS Duration: 80 ms Q-T Interval: 400 ms QTC Calculation(Bezet): 484 ms P [place]: 54 degrees Calculated R [place]: 62 degrees Calculated T [place]: 89 degrees Diagnosis Line: Normal sinus rhythm Diagnosis Line: Low voltage QRS Diagnosis Line: Nonspecific ST abnormality Diagnosis Line: Abnormal ECG Diagnosis Line: No previous ECGs available Diagnosis Line: Confirmed by RHONDA MARIE MD ([id number]) on Diagnosis Line: 12/23/2016 4:32:16 PM Diagnosis Line: Also confirmed by RHONDA MARIE MD ([id number]) on Diagnosis Line: 12/23/2016 4:32:42 PM INTERPRETING MD: HENNY
--- NOTE | ~2016-12-21 | EKG ---
PATIENT: ELVIA SEPULVEDA UNIT #: [id number] Ventricular Rate: 88 BPM Atrial Rate: 88 BPM P-R Interval: 154 ms QRS Duration: 80 ms Q-T Interval: 400 ms QTC Calculation(Bezet): 484 ms P [place]: 54 degrees Calculated R [place]: 62 degrees Calculated T [place]: 89 degrees Diagnosis Line: Normal sinus rhythm Diagnosis Line: Low voltage QRS Diagnosis Line: Nonspecific ST abnormality Diagnosis Line: Abnormal ECG Diagnosis Line: No previous ECGs available Diagnosis Line: Confirmed by RHONDA MARIE MD ([id number]) on Diagnosis Line: 12/23/2016 4:32:16 PM INTERPRETING MD: HENNY
--- NOTE | ~2016-12-21 | CO ---
Unit #: [id number] #: [id number] Patient: ELVIA SEPULVEDA [id number] [address] [place], [place] [address] [id number] Rickey MR#: [id number] NAME: ELVIA SEPULVEDA ROOM: 47 Age: 46 Sex: F Admission Date: 12/22/2016 : 1970 Attending Physician: Yamileth Cormier M.D. Primary Care Physician: Saw Thomson M.D. Consultation Date: 12/22/2016 CONSULTATION REPORT REASON FOR EVALUATION Reason for eval: Right peroneal vein thrombosis, please evaluate. HISTORY OF PRESENT ILLNESS This 46-year-old lady whom I saw in 2009 had documented bilateral pulmonary emboli, subsequently started on anticoagulation and subsequent multiple CTs, V/Q scan and Dopplers of the lower extremities were all unremarkable but during this period she had an IVC filter placed and recently admitted to this institution and was found to have a peroneal vein thrombosis and a very large subcutaneous hematoma post lap banding, area bleeding and restarting of the Lovenox. PAST MEDICAL HISTORY In the past history: We did a complete hypercoagulable workup which was negative including factor V Leiden, PGM, lupus anticoagulant, cardiolipin, phospholipid antibodies, protein C and protein S level was low but at that time she had bilateral PEs and subsequently has not been repeated. Past history also remarkable for morbid obesity. She is status post lap band. Hyperlipidemia, hypertension, hypothyroidism, cardiomyopathy. FAMILY HISTORY Negative for blood dyscrasias or clots. SOCIAL HISTORY Has children and grandchildren, occasional alcohol usage, nonsmoker. CHRONIC MEDICATIONS Neurontin, Ultram and Lovenox. ALLERGIES Allergic to lisinopril. REVIEW OF SYSTEMS Tiredness, lightheadedness, ill health, abdominal discomfort, otherwise 8 or 10 system are within normal limits. PHYSICAL EXAMINATION GENERAL: On exam she is in no acute distress, lying flat on her back. Family is with her. LYMPHATIC: No supraclavicular, axillary or groin nodes. LUNGS: Clear. CARDIOVASCULAR: Distant S1 and S2. GASTROINTESTINAL: At the lap band site there is a subcutaneous mass, Unit #: [id number] #: [id number] Patient: COWHERD,ELVIA mildly tender. LOWER EXTREMITIY: No edema. PELVIC AND BREAST EXAM: Was not performed. DIAGNOSTIC STUDIES LABORATORY: Chemistries: Glucose 107, BUN 6, creatinine 1.1, sodium 135, potassium 3.4, chloride 104, CO 21, pro-time 11.7, INR of 1.1, PTT 35.2, hemoglobin 8.9, hematocrit 26, white count 7600, platelets 176,000 on December 19 her hemoglobin was 11.8, hematocrit of 35.2. Old hypercoagulable workup which was done in 2009 is negative. IMAGING: And all the CT angios, V/Q scan and Dopplers between 2009 and 2016 until recently are negative for clots. The recent Doppler done a few weeks ago peroneal possible DVT and patient developed very large hematoma with significant bleed, dropping her hematocrit from 35 to 30 and has an IVC filter. IMPRESSION So, at this point I discussed the options with the patient and her family and a decision was made to hold all anticoagulation for now, ambulate, will check a D-dimer, lupus anticoagulant and protein S activity and monitor her closely for progression of the clot. Dictated by... Calvin Crum M.D. GREG/stella TD: 12/22/2016 17:37 JOB #: [id number] CONSULTATION REPORT Page 1 of 1 X Calvin Crum MD CONSULTATION REPORT
--- NOTE | ~2016-12-21 | OR ---
Unit #: [id number] #: [id number] Patient: ELVIA SEPULVEDA [id number] [address] [place], [place] [address] [id number] Rickey MR#: [id number] NAME: ELVIA SEPULVEDA ROOM: 47 Date of Procedure: 12/23/2016 Admission Date: 12/22/2016 Surgeon: Gregory Carlton III, M.D. : 1970 Attending Physician: Yamileth Cormier M.D. Primary Care Physician: Saw Thomson M.D. OPERATIVE REPORT PREOPERATIVE DIAGNOSIS Abdominal wall hematoma after recent lap-band port revision. POSTOPERATIVE DIAGNOSIS Abdominal wall hematoma after recent lap-band port revision. PROCEDURE PERFORMED Evacuation of hematoma and seroma from recent lap band port revision incision. PROOF OPERATOR None. ANESTHESIA General endotracheal tube anesthesia. SPECIMENS None. COMPLICATIONS None apparent. INDICATIONS FOR PROCEDURE This is a 46-year-old lady, who had some dysphagia this last week and the lap band had flipped over. She underwent revision and she is anticoagulated due to history of recurrent DVT. She had a postoperative hematoma at that same site and this was progressively enlarging with some anemia. She was brought for evacuation of the hematoma site. DESCRIPTION OF PROCEDURE After consent was obtained, the patient was brought to the operating room and placed in the supine position. General anesthetic was administered and her abdomen was prepped and draped in standard surgical fashion. I opened up the previous incision. There was lot of seroma as well as a formed hematoma. I was able to break up the hematoma and removed all congealed blood. I did not see anything actively bleeding. I saw her port and it was still in good position. I then irrigated again and had good hemostasis. I closed the wound in layers with a deeper 2-0 Vicryl suture. Intermediate layer was closed with interrupted 3-0 Vicryl suture and the skin edges were reapproximated with a running 4-0 Vicryl subcuticular suture. Steri-Strips were then applied. The patient tolerated the procedure without any problems and returned to the recovery Unit #: [id number] #: [id number] Patient: ELVIA SEPULVEDA room in stable condition. Dictated by... Vincdeysi Carlton III, M.D. VCL/kassandra TD: 12/25/2016 05:42 JOB #: [id number] OPERATIVE REPORT Page 1 of 1 X Gregory Carlton III, MD X PROCEDURE OPERATIVE NOTE
--- NOTE | ~2016-12-21 | CO ---
Unit #: [id number] #: [id number] Patient: ELVIA MCGARRY [id number] [address] [place], [place] [address] [id number] I MR#: [id number] NAME: ELVIA MCGARRY ROOM: 47 Age: 46 Sex: F Admission Date: 12/22/2016 : 1970 Attending Physician: Yamileth Cormier M.D. Primary Care Physician: Saw Thomson M.D. Consultation Date: 12/22/2016 CONSULTATION REPORT HISTORY AND EXAM Ms. Mcgarry is a 46-year-old female with a history of a Factor V Leiden mutation and coagulopathy. She recently had a lap band port revision by Dr. Carlton and went home on December 20 in stale condition. She presented to the emergency room last night with bleeding from her port site and she complained of being lightheaded. When she arrived at the emergency room, she had some mild hypotension but she responded readily to fluids. Hemoglobin did not show a significant drop with a hemoglobin of 10.2. Interestingly, her INR is 1.1 and her platelets were 176,000. By the time the patient was seen, the bleeding had stopped but she did have a significant subcutaneous hematoma. PAST MEDICAL HISTORY 1. History of pericardial effusion. 2. Degenerative joint disease. 3. Factor V Leiden mutation. 4. History of recurrent pulmonary emboli. 5. She has had inferior vena cava filter placement. 6. Hyperlipidemia. 7. Hypertension. 8. Morbid obesity. 9. Hypothyroidism. 10. Nonischemic cardiomyopathy, EF was 57%. 11. Type 2 diabetes. 12. . 13. Tubal ligation. 14. Endometrial ablation. 15. Right total knee replacement. ALLERGIES Allergic to lisinopril. MEDICATIONS Home medications include: 1. Lovenox subcutaneous b.i.d. 2. Neurontin. 3. Ultram. FAMILY HISTORY She denies any knowledge of any chronic or inheritable diseases. SOCIAL HISTORY Lives at home with family. Social alcohol drinker. Denies use of tobacco. Unit #: [id number] #: [id number] Patient: ELVIA MCGARRY REVIEW OF SYSTEMS Otherwise unremarkable. PHYSICAL EXAMINATION VITAL SIGNS: On current examination, patient is afebrile. Temperature 98.2, pulse 84 and regular, respirations 18, blood pressure 105/69. GENERAL: Awake, alert and oriented, very pleasant and cooperative. HEENT: Unremarkable. CARDIAC EXAM: Regular rhythm. LUNGS: Clear. ABDOMEN: Soft. Around the port site, however, she does have a subcutaneous hematoma. I cannot express any drainage at this time and there is no active bleeding. She does not have any peritoneal signs. EXTREMITIES: No edema. NEUROLOGICALLY: Grossly intact. No skin rashes or lesions. DIAGNOSTIC STUDIES LABORATORY: Comprehensive metabolic panel shows a potassium of 3.4 but otherwise unremarkable. Lactic acid was 1.8. INR is 1.1. White count 7600, hemoglobin 10.2. At the time of discharge, her hemoglobin was 11.8. Platelets 176,000. Differential is normal. Urinalysis was negative for infection. ASSESSMENT AND PLAN 46-year-old female with a history of a Factor V Leiden mutation and hypercoagulable syndrome with a history of pulmonary emboli. She recently had revision of her lap band port and was discharged home in stable condition. She is on Lovenox b.i.d. and developed bleeding at the port site that has now resolved but she does have a subcutaneous hematoma. At this time, we will do local care to the wound. Hematology is to see the patient as ordered by the [facility]IPS physician. I will notify Dr. Carlton to see if he wants to just observe the hematoma or consider evacuation. Dictated by... Jaylene Reyes/rowdy TD: 12/23/2016 07:16 JOB #: [id number] CONSULTATION REPORT Page 1 of 1 X Fox Mckeon MD CONSULTATION REPORT
--- NOTE | ~2016-12-21 | HP ---
Unit #: [id number] #: [id number] Patient: ELVIA SEPULVEDA [id number] [address] [place], [place] [address] [id number] I MR#: [id number] NAME: ELVIA SEPULVEDA ROOM: 38871 Age: 46 Sex: F Admission Date: 12/22/2016 : 1970 Attending Physician: Katherine Villagran M.D. Primary Care Physician: Saw Thomson M.D. HISTORY AND PHYSICAL CHIEF COMPLAINT Lightheadedness wit hypotension. Large subcu hematoma of the abdominal wall. HISTORY OF PRESENT ILLNESS This pleasant 46-year-old female with Factor V Leiden mutation, nonischemic cardiomyopathy, is admitted for abdominal wall hematoma with bleeding. The patient was last admitted to this facility 12/17 through 12/20/2016 for complaints of shortness of breath, similar to her previous PE. She ultimately ruled out of a PE, but was found to have a right leg DVT. Her Lovenox had not been supplied by the insurance company for 4 months. She therefore was restarted on her Lovenox during her most recent hospital stay. Due to complaints of dysphagia and nausea and vomiting, she was seen by Dr. Carlton. She was found to have a flipped Lap-band port which required revision. Her last dose of Lovenox was 12/20/2016 p.m. She went home that evening. Yesterday she developed quit a bit of bleeding from the surgical site midabdomen, began to experience lightheadedness, and presented back to this emergency department last evening with a blood pressure of 76/53. Her bleeding has resolved, but she does have a large subcutaneous mass by the Lap-band site. CT scan performed shows a moderately large lobulated subcutaneous hematoma in the abdominal wall with a fluid level around the gastric Lap-band port. Her hematocrit is 30.7, down from a hematocrit of 35.2. In the ER she was bolused with 500 mL of saline with resolution of her hypotension. PAST MEDICAL HISTORY 1. Mild to moderate pericardial effusion, admitted 05/2016. 2. DJD. 3. Prior history of recurrent PE's with recent DVT found in the right lower extremity. The patient is status post IVC filter placement. She has a Factor V Leiden mutation. 4. Hyperlipidemia. 5. Hypertension. 6. Morbid obesity. 7. Hypothyroidism. 8. History of a nonischemic cardiomyopathy with negative cardiac catheterization 2014. However, most recent MUGA scan performed 06/[address] Lopez calculated the ejection fraction to be 57%. Therefore the amount of ischemic cardiopathy has resolved. 9. Diet-controlled AODM. 10. . 11. BTL. Unit #: [id number] #: [id number] Patient: ELVIA SEPULVEDA 12. Endometrial ablation. 13. Right total knee replacement. SOCIAL HISTORY The patient lives with her son, daughter and grandchildren. Drinks occasional alcohol. Does not smoke. FAMILY HISTORY Negative for blood clots. ALLERGIES Lisinopril. MEDICATIONS High dose Lovenox subcu b.i.d. Neurontin 100 mg t.i.d. Ultram 50 b.i.d. p.r.n. REVIEW OF SYSTEMS Notable for abdominal pain and abdominal bleeding by the revision of the Lap-band site, pericardial effusion, recurrent PE's, DVT, hyperlipidemia, thyroid disease, above mentioned surgeries, diet-controlled AODM, lightheadedness, tingling in the feet. All other systems were reviewed and otherwise negative. PHYSICAL EXAMINATION GENERAL APPEARANCE: Pleasant, obese 46-year-old female, currently in no acute distress. VITAL SIGNS: Temp 98.4, pulse 93, respirations 18. Initial blood pressure was 76/53, current blood pressure is 106/74 after a 500 mL bolus of saline. HEENT: Eyes - PERRLA, extraocular muscles are intact. Pharynx is benign. NECK: Supple without adenopathy or thyromegaly. CHEST: Clear. HEART: Normal S1 and S2 without S3, S4 or murmur. ABDOMEN: Bowel sounds are present. There is a subcutaneous mass in the upper abdomen by the Lap-band sites, bleeding has stopped. Some tenderness at this region. No definite hepatosplenomegaly. EXTREMITIES: Without edema. Pedal pulses are present. NEUROLOGIC: Patient is alert, oriented, cranial nerves are intact, equal strength throughout. DIAGNOSTIC STUDIES LABORATORY: Hematocrit is 30.7, down from 35.2 two days ago. Normal white count, platelet count. SMA12 - potassium is 3.4, C02 of 21. AST is 49. Lactic acid normal. Urinalysis is negative. IMAGING: Abdominal CT scan shows unchanged pericardial effusion at 1.7 cm. Moderately large lobulated subcutaneous hematoma in the anterior abdominal wall with a fluid level. This hematoma measures 11 cm. It has associated stranding in the subcutaneous fat and around the gastric La-band port. CARDIOVASCULAR: EKG - normal sinus rhythm, rate 88, low voltage. ASSESSMENT 1. Hypotension and lightheadedness probably secondary to not only the patient's bleeding but in part vasovagal. The patient's blood Unit #: [id number] #: [id number] Patient: ELVIA SEPULVEDA pressure is normal after 500 mL of saline. 2. Bleeding at the Lap-band site status post revision. The patient has a large subcutaneous hematoma near the abdominal wall around the Lap-band port. 3. Anticoagulated on high dose Lovenox secondary to Factor V Leiden mutation with history of PE's and recent right leg DVT. The patient is status post IVC filter. Her last dose of Lovenox was 12/20/2016 p.m. 4. Previous history of nonischemic cardiomyopathy which has since resolved. PLAN 1. IV fluids. 2. Monitor H&H and transfuse if needed. 3. Hold Lovenox. 4. Hematology and [facility] to see in the morning. STAT * RESULT Dictated by Katherine Villagran M.D. AML/ljd TD: 12/22/2016 04:05 JOB #: [id number] HISTORY AND PHYSICAL Page 1 of 1 X Katherine Villagran MD HISTORY AND PHYSICAL
[2016-12-21 22:59] LABS: BASOPHIL% 0.6 % (0-2.5); EOSINOPHIL# 0.1 X10e3 (0-0.7); EOSINOPHIL% 1.9 % (0.0-7.0); HEMATOCRIT 30.7 % (35.0-45.0); HEMOGLOBIN 10.2 gm/dL (12.0-16.0); LYMPHOCYTE# 2.3 X10e3 (1.0-3.5); LYMPHOCYTE% 30.1 % (17.0-45.0); MEAN CELL VOLUME 97.5 FL (83-96); MEAN CORPUSCULAR HEMOGLOBIN 32.3 PG (28-34); MEAN CORPUSCULAR HGB CONC 33.2 g/dL (30-36); MEAN PLATELET VOLUME 9.2 FL (6.5-11.5); MONOCYTE# 0.6 X10e3 (0-1.0); MONOCYTE% 7.5 % (3.0-12.0); NEUTROPHIL# 4.5 X10e3 (1.5-7.1); NEUTROPHIL% 59.9 % (40-75); PLATELET COUNT 176 X10e3 (140-420); RED BLOOD COUNT 3.14 X10e (3.90-5.30); RED CELL DISTRIBUTION WIDTH 15.2 % (11.0-15.5); WHITE BLOOD COUNT 7.6 X10e3 (4.0-10.5)
[2016-12-21 23:00] LABS: DIFF IND NO
[2016-12-21 23:15] LABS: INR 1.1; PROTHROMBIN TIME (PATIENT) 11.7 SECONDS (10.0-11.7)
[2016-12-21 23:17] LABS: PARTIAL THROMBOPLASTIN TIME 35.2 SECONDS (23.5-31.3)
[2016-12-21 23:27] LABS: ALBUMIN SERUM 3.9 g/dL (3.5-5.0); BILIRUBIN, DIRECT 0.3 mg/dL (0.0-0.2); BILIRUBIN,INDIRECT 1.5 mg/dL (0.0-0.9); BILIRUBIN,TOTAL 1.8 mg/dL (0.2-2.0); BUN/CREATININE RATIO 5.45; CREATININE SERUM 1.1 mg/dL (0.6-1.4); GLOM FILT RATE Estimated 69.7 mL/min (>60); POTASSIUM 3.4 mmol/L (3.5-5.1); PROTEIN TOTAL SERUM 6.8 g/dL (6.0-8.3)
[2016-12-22 02:07] LABS: URINE SOURCE CLEAN CATCH
[2016-12-22 02:15] LABS: URINE APPEARANCE CLEAR; URINE BILIRUBIN NEG (NEG); URINE BLOOD NEG (NEG); URINE COLOR DK YELLOW; URINE GLUCOSE NEG (NEG); URINE KETONE TRACE (NEG); URINE LEUKOCYTE ESTERASE NEG (NEG); URINE NITRATE NEG (NEG); URINE PH 5.5 (5-8); URINE PROTEIN NEG (NEG); URINE SPECIFIC GRAVITY 1.081 (1.003-1.035)
[2016-12-22 02:18] LABS: CULTURE INDICATED? NO
[2016-12-22 07:18] LABS: HEMATOCRIT 27.2 % (35.0-45.0); HEMOGLOBIN 9.2 gm/dL (12.0-16.0)
[2016-12-22 12:25] LABS: HEMOGLOBIN 8.9 gm/dL (12.0-16.0)
[2016-12-22 18:12] LABS: HEMATOCRIT 26.6 % (35.0-45.0); HEMOGLOBIN 8.7 gm/dL (12.0-16.0)
[2016-12-23 00:49] LABS: HEMATOCRIT 25.1 % (35.0-45.0); HEMOGLOBIN 8.2 gm/dL (12.0-16.0)
[2016-12-23 07:43] LABS: HEMATOCRIT 23.8 % (35.0-45.0); HEMOGLOBIN 8.1 gm/dL (12.0-16.0)
[2016-12-23 12:33] LABS: HEMATOCRIT 22.8 % (35.0-45.0); HEMOGLOBIN 7.8 gm/dL (12.0-16.0)
[2016-12-24 01:10] LABS: HEMATOCRIT 24.7 % (35.0-45.0); HEMOGLOBIN 8.3 gm/dL (12.0-16.0)
[2016-12-24 06:35] LABS: HEMATOCRIT 24.7 % (35.0-45.0); HEMOGLOBIN 8.3 gm/dL (12.0-16.0); MEAN CELL VOLUME 96.5 FL (83-96); MEAN CORPUSCULAR HEMOGLOBIN 32.5 PG (28-34); MEAN CORPUSCULAR HGB CONC 33.7 g/dL (30-36); MEAN PLATELET VOLUME 9.1 FL (6.5-11.5); RED BLOOD COUNT 2.56 X10e (3.90-5.30); RED CELL DISTRIBUTION WIDTH 17.1 % (11.0-15.5); WHITE BLOOD COUNT 7.7 X10e3 (4.0-10.5)
[2016-12-24 11:55] LABS: HEMATOCRIT 28.3 % (35.0-45.0); HEMOGLOBIN 9.6 gm/dL (12.0-16.0)
[2016-12-24] MEDS ORDERED: HYDROCODON-ACE1 EAC9 PO (12:17)
== END 2016-12-24 14:24 | disposition home health service (06) | DRG 920 ==
LOC: CED 21:55 → CEDOF 12-22 03:15 → CED 12-22 03:22 → CEDOF 12-22 03:22 → C4C 12-22 04:12 → CEDOF 12-22 04:12 → C4C 12-22 08:16
PROVIDERS: Emergency Medicine; Internal Medicine; Internal Medicine Medical Oncology; Surgery
PROC: 30233N1 Transfusion of Nonautologous Red Blood Cells into Peripheral Vein, Percutaneous Approach (ICD-10-PCS; 2016-12-23)
PROC: 0JC80ZZ Extirpation of Matter from Abdomen Subcutaneous Tissue and Fascia, Open Approach (ICD-10-PCS; principal; 2016-12-23 08:30)
DX: L76.32 Postprocedural hematoma of skin and subcutaneous tissue following other procedure (principal); D68.51 Activated protein C resistance; I95.9 Hypotension, unspecified; I82.401 Acute embolism and thrombosis of unspecified deep veins of right lower extremity; E66.01 Morbid (severe) obesity due to excess calories; M96.843 Postprocedural seroma of a musculoskeletal structure following other procedure; D64.9 Anemia, unspecified; Y83.8 Other surgical procedures as the cause of abnormal reaction of the patient, or of later complication, without mention of misadventure at the time of the procedure; Y92.9 Unspecified place or not applicable; Z98.84 Bariatric surgery status; M19.90 Unspecified osteoarthritis, unspecified site; I10 Essential (primary) hypertension; E78.5 Hyperlipidemia, unspecified; E11.9 Type 2 diabetes mellitus without complications; E03.9 Hypothyroidism, unspecified; Z98.51 Tubal ligation status; Z88.8 Allergy status to other drugs, medicaments and biological substances; Z96.651 Presence of right artificial knee joint; Z86.711 Personal history of pulmonary embolism; Z79.01 Long term (current) use of anticoagulants; T45.515A Adverse effect of anticoagulants, initial encounter
CPT/HCPCS: 36415; 36430; 74177; 80048; 80076; 81003; 82947; 83605; 85014; 85018; 85025; 85027; 85306; 85379; 85598; 85610; 85613; 85670; 85730; 86147; 86850; 86900; 86901; 86923; 93005; 99285; J0690; J2250; J3010; P9016; Q9967

== ENCOUNTER 2017-01-01 11:16 | Emergency (ER) | payer MEDICAID ==
[~2017-01-01] VITALS: Ht 172.7 cm; Wt 122.5 kg
--- NOTE | ~2017-01-01 | EKG ---
PATIENT: ELVIA SEPULVEDA UNIT #: [id number] Ventricular Rate: 73 BPM Atrial Rate: 73 BPM P-R Interval: 138 ms QRS Duration: 76 ms Q-T Interval: 410 ms QTC Calculation(Bezet): 451 ms P [place]: 47 degrees Calculated R [place]: 60 degrees Calculated T [place]: 79 degrees Diagnosis Line: Normal sinus rhythm Diagnosis Line: Low voltage QRS Diagnosis Line: Borderline ECG Diagnosis Line: When compared with ECG of 21-DEC-2016 22:42, Diagnosis Line: No significant change was found Diagnosis Line: Confirmed by ROLAN ALDRICH MD ([id number]) on 01/04/2017 Diagnosis Line: 7:45:36 AM INTERPRETING MD: ELINOR LOPEZ
[~2017-01-01 11:16] MED LIST changes: +HYDROCODON-ACE1 EAC9 PO
[2017-01-01 12:26] LABS: BASOPHIL# 0.1 X10e3 (0-0.3); BASOPHIL% 1.1 % (0-2.5); EOSINOPHIL# 0.2 X10e3 (0-0.7); EOSINOPHIL% 3.3 % (0.0-7.0); HEMATOCRIT 28.4 % (35.0-45.0); HEMOGLOBIN 9.4 gm/dL (12.0-16.0); LYMPHOCYTE# 2.4 X10e3 (1.0-3.5); LYMPHOCYTE% 34.5 % (17.0-45.0); MEAN CELL VOLUME 97.5 FL (83-96); MEAN CORPUSCULAR HEMOGLOBIN 32.5 PG (28-34); MEAN CORPUSCULAR HGB CONC 33.3 g/dL (30-36); MEAN PLATELET VOLUME 7.7 FL (6.5-11.5); MONOCYTE# 0.4 X10e3 (0-1.0); MONOCYTE% 6.2 % (3.0-12.0); NEUTROPHIL# 3.8 X10e3 (1.5-7.1); NEUTROPHIL% 54.9 % (40-75); PLATELET COUNT 287 X10e3 (140-420); RED BLOOD COUNT 2.91 X10e (3.90-5.30); RED CELL DISTRIBUTION WIDTH 16.3 % (11.0-15.5); WHITE BLOOD COUNT 6.8 X10e3 (4.0-10.5)
[2017-01-01 12:39] LABS: DIFF IND NO
[2017-01-01 12:58] LABS: BUN/CREATININE RATIO 7.5; CALCIUM SERUM 8.2 mg/dL (8.4-10.2); CREATININE SERUM 1.2 mg/dL (0.6-1.4); GLOM FILT RATE Estimated 62.8 mL/min (>60); POTASSIUM 3.7 mmol/L (3.5-5.1)
[2017-01-01 13:08] LABS: URINE SOURCE CLEAN CATCH
[2017-01-01 13:13] LABS: URINE APPEARANCE CLEAR; URINE BILIRUBIN NEG (NEG); URINE BLOOD NEG (NEG); URINE COLOR YELLOW; URINE GLUCOSE NEG (NEG); URINE KETONE NEG (NEG); URINE LEUKOCYTE ESTERASE NEG (NEG); URINE NITRATE NEG (NEG); URINE PROTEIN NEG (NEG); URINE SPECIFIC GRAVITY 1.015 (1.003-1.035)
== END 2017-01-01 13:45 | disposition home or self-care (01) ==
LOC: CED 11:16
PROVIDERS: Emergency Medicine
DX: R42 Dizziness and giddiness (principal); R53.1 Weakness; D64.9 Anemia, unspecified; E36.01 Intraoperative hemorrhage and hematoma of an endocrine system organ or structure complicating an endocrine system procedure; Z88.8 Allergy status to other drugs, medicaments and biological substances; Z79.899 Other long term (current) drug therapy
CPT/HCPCS: 36415; 80048; 81003; 84703; 85025; 93005; 99284